=== PATIENT | male | born 1985 | race American Indian/Alaskan Native ===

== ENCOUNTER 2016-04-15 10:53 | Emergency (ER) | payer OTHER ==
[2016-04-15 11:33] VITALS: BP 116/58
--- NOTE | 2016-04-15 13:44 | XRay Report ---
LEFT HAND: The bony architecture is intact. Bony alignment is normal. No soft tissue abnormalities are seen. The joint spaces appear preserved. IMPRESSION: Normal left hand.
--- NOTE | 2016-04-15 14:42 | Emergency Department Report ---
HPI - General Chief Complaint: Extremity Injury, Upper Time Seen by Provider: 04/15/16 14:38 - HPI HPI: Patient is a 30-year-old male who presents with left index finger pain 4 days. Patient states he was playing basketball 4 days ago when he hurt his finger. Patient states he did not notice pain until about 3 days ago if pain is gone progressively worse. Patient describes pain as throbbing in nature. Patient has no loss of sensation patient is able to move fingers without problem. Patient denies fever/chills/nausea/vomitingchest pain/shortness of breath or any other problems. ED Past Medical Hx - Surgical History Additional Surgical History: right knee surgery - Social History Smoking Status: Never Smoker - Medications Home Medications: Home Medications Medication Instructions Recorded Confirmed Last Taken Type traMADol [Ultram] 50 mg PO Q6HR PRN #14 tablet 04/05/15 Unknown Rx Ciprofloxacin HCl [Ciprofloxacin 500 mg PO Q12H #14 tab 09/02/15 Unknown Rx TAB] ALBUTEROL Inhaler [ProAir HFA 2 puff IH QID PRN #1 inhalation 01/01/16 Unknown Rx Inhaler] Prednisone [predniSONE 10 mg 10 mg PO .TAPER #1 tab.ds.pk 01/01/16 Unknown Rx (6-Day Pack, 21 Tabs)] Ibuprofen [Motrin 600 MG tab] 600 mg PO Q8H PRN #60 tablet 04/15/16 Unknown Rx ED Review of Systems ROS: Stated complaint: PAIN/SWELLING LFT PHALANGES Other details as noted in HPI Constitutional: denies: chills, fever Eyes: denies: eye pain, eye discharge, vision change ENT: denies: ear pain, throat pain Respiratory: denies: cough, shortness of breath, wheezing Cardiovascular: denies: chest pain, palpitations Endocrine: no symptoms reported Gastrointestinal: denies: abdominal pain, nausea, diarrhea Genitourinary: denies: urgency, dysuria Musculoskeletal: arthralgia. denies: back pain, joint swelling Skin: denies: rash, lesions Neurological: denies: headache, weakness, numbness, paresthesias, confusion Psychiatric: denies: anxiety, depression Hematological/Lymphatic: denies: easy bleeding, easy bruising, swollen glands Physical Exam - Physical Exam Vital Signs: Vital Signs 04/15/16 11:27 Temperature 98.2 F Pulse Rate 60 Respiratory 18 Rate Blood Pressure 116/58 O2 Sat by Pulse 99 Oximetry General: Alert and oriented 3. Patient in no distress Physical Exam: GENERAL: Alert and oriented x3, no apparent distress, Normal Gait, atraumatic. HEAD: Head is normocephalic and a-traumatic. EYES: Extra ocular muscles are intact. Pupils are equal, round, and reactive to light and accommodation. EARS: symetrical, atraumatic, non tender, ear canal clear and moderate cerumen, tympanic membrance non inflamed. gross auditory nml bilaterally. NOSE: Nose symetrical, Nontender,Nares appeared normal. MOUTH:Mouth is well hydrated and without lesions. Tonsils nonerythematous or swollen, Uvula midline, Tongue not elevated. Mucous membranes are moist. Posterior pharynx clear, no exudate or lesions. Patent airways. NECK: Supple. Non edematous, No carotid bruits. No lymphadenopathy or thyromegaly. LUNGS: Symetrical with respiration, No wheezing, no rales or crackles, CTAB. HEART: S1, S2 present, regular rate and rhythm without murmur, no rubs, no gallops. UROGENITAL: No scrotal mass, Scrotum non tender to palpation bilaterally, no hernia, no scars or penile discharge. EXTREMITIES/MUSCULOSKELETAL: No cyanosis, clubbing, rash, lesions or edema. Full ROM bilaterally. UE/LE Pulses 2+ bilaterally. LE and UE 5+ strength bilaterally, hands intact bilaterally. NEUROLOGIC: No focal Deficit, Cranial nerves II through XII are grossly intact. No loss of sensation, No facial droop, Negative rhomberg. PSYCHIATRIC: Mood is congruent with affect, denies suicidal or homicidal ideations. SKIN: Warm and dry, No lesions, No ulceration or induration present. ED Course Vital Signs 04/15/16 11:27 Temperature 98.2 F Pulse Rate 60 Respiratory 18 Rate Blood Pressure 116/58 O2 Sat by Pulse 99 Oximetry ED Medical Decision Making - Medical Decision Making 30-year-old male presents with a finger sprain. No distress. Vital signs stable. ED course: Patient received a nodular milligrams of Motrin. X-ray of hand report shows no acute fracture or dislocation or injury. Discussed results with the patient. Discussed patient to follow up with primary care physician. Discussed home medication with Motrin. Discussed rest ice elevate instructions Critical care attestation.: If time is entered above; I have spent that time in minutes in the direct care of this critically ill patient, excluding procedure time. ED Disposition Clinical Impression: Sprain of finger of left hand Disposition: DISCHARGED TO HOME OR SELFCARE Is pt being admited?: No Does the pt Need Aspirin: No Condition: Stable Instructions: Finger Sprain (ED), RICE Therapy (ED) Prescriptions: Ibuprofen [Motrin 600 MG tab] 600 mg PO Q8H PRN #60 tablet PRN Reason: Pain Referrals: PRIMARY CARE, [Primary Care Provider] - 3-5 Days [facility] [Outside] - 3-5 Days [facility] [Outside] - 3-5 Days [facility] [Outside] - 3-5 Days [facility] [Outside] - 3-5 Days Forms: Work/School Release Form(ED) Time of Disposition: 15:15
[2016-04-15] MEDS ORDERED: MOTRIN PO ONE (14:43)
== END 2016-04-15 15:45 | disposition home or self-care (01) ==
LOC: ED 10:53
DX: S63.611A Unspecified sprain of left index finger, initial encounter (principal); X58.XXXA Exposure to other specified factors, initial encounter; Y93.67 Activity, basketball; Y92.310 Basketball court as the place of occurrence of the external cause; Y99.9 Unspecified external cause status
CPT/HCPCS: 99283

== ENCOUNTER 2016-06-28 22:56 | Emergency (ER) | payer OTHER ==
[2016-06-29] MEDS ORDERED: TYLENOL ONE (03:24)
[2016-06-29] MEDS ORDERED: TYLENOL PO ONE (03:38)
[2016-06-29] MEDS ORDERED: ROBITUSSIN PO ONE (06:12)
--- NOTE | 2016-06-29 06:20 | Emergency Department Report ---
HPI - General Chief Complaint: Upper Respiratory Infection Time Seen by Provider: 06/29/16 05:49 - HPI HPI: Patient is a 30-year-old male who presents to ED complaining of generalized body aches and fever 3 days. Patient states she has been having this for the past days. Patient states he feels like he has a cough sometimes is productive sometimes it's not patient states cough is resolved as well as fever. Patient denies nausea/vomiting/abdominal pain/chest pain/shortness of breath or any other problems ED Past Medical Hx - Past Medical History Previous Medical History?: No - Surgical History Past Surgical History?: Yes Additional Surgical History: right knee surgery - Social History Smoking Status: Never Smoker - Medications Home Medications: Home Medications Medication Instructions Recorded Confirmed Last Taken Type traMADol [Ultram] 50 mg PO Q6HR PRN #14 tablet 04/05/15 Unknown Rx Ciprofloxacin HCl [Ciprofloxacin 500 mg PO Q12H #14 tab 09/02/15 Unknown Rx TAB] ALBUTEROL Inhaler [ProAir HFA 2 puff IH QID PRN #1 inhalation 01/01/16 Unknown Rx Inhaler] Prednisone [predniSONE 10 mg 10 mg PO .TAPER #1 tab.ds.pk 01/01/16 Unknown Rx (6-Day Pack, 21 Tabs)] Acetaminophen [Acetaminophen 8 650 mg PO TID #20 tablet.er 06/29/16 Unknown Rx Hour] Dextromethorphan HBr [Robitussin] 15 mg PO TID #24 capsule 06/29/16 Unknown Rx Ibuprofen [Motrin 600 MG tab] 600 mg PO Q8H PRN #60 tablet 06/29/16 Unknown Rx ED Review of Systems ROS: Stated complaint: NAUSEA/BODY PAIN Other details as noted in HPI Constitutional: fever. denies: chills Eyes: denies: eye pain, eye discharge, vision change ENT: denies: ear pain, throat pain, dental pain, hearing loss Respiratory: denies: cough, shortness of breath, wheezing Cardiovascular: denies: chest pain, palpitations Endocrine: no symptoms reported Gastrointestinal: denies: abdominal pain, nausea, vomiting, diarrhea Genitourinary: denies: urgency, dysuria, frequency, hematuria Musculoskeletal: denies: back pain, joint swelling, arthralgia Skin: denies: rash, lesions Neurological: denies: headache, weakness, paresthesias Psychiatric: denies: anxiety, depression Hematological/Lymphatic: denies: easy bleeding, easy bruising Physical Exam - Physical Exam Vital Signs: Vital Signs 06/29/16 00:43 Temperature 98.8 F Pulse Rate 93 H Blood Pressure 120/61 O2 Sat by Pulse 99 Oximetry Physical Exam: GENERAL: Alert and oriented x3, no apparent distress, Normal Gait, atraumatic. HEAD: Head is normocephalic and a-traumatic. EYES: Extra ocular muscles are intact. Pupils are equal, round, and reactive to light and accommodation. EARS: symetrical, atraumatic, non tender, ear canal clear and moderate cerumen, tympanic membrance non inflamed. gross auditory nml bilaterally. NOSE: Nose symetrical, Nontender,Nares appeared normal. MOUTH:Mouth is well hydrated and without lesions. Tonsils nonerythematous or swollen, Uvula midline, Tongue not elevated. Mucous membranes are moist. Posterior pharynx clear, no exudate or lesions. Patent airways. NECK: Supple. Non edematous, No carotid bruits. No lymphadenopathy or thyromegaly. LUNGS: Symetrical with respiration, No wheezing, no rales or crackles, CTAB. HEART: S1, S2 present, regular rate and rhythm without murmur, no rubs, no gallops. ABDOMEN: No organomegaly was noted,Positive bowel sounds, soft, and non- distended. . Nontender to palpation on all Quadrants, NEUROLOGIC: No focal Deficit, Cranial nerves II through XII are grossly intact. No loss of sensation, PSYCHIATRIC: Mood is congruent with affect, denies suicidal or homicidal ideations. SKIN: Warm and dry, No lesions, No ulceration or induration present. ED Course Vital Signs 06/29/16 00:43 Temperature 98.8 F Pulse Rate 93 H Blood Pressure 120/61 O2 Sat by Pulse 99 Oximetry ED Medical Decision Making - Medical Decision Making 30 year-old male presents with URI ED course: Patient received one dose of Tylenol and 1 dose of Robitussin. Discussed with patient symptomatic relief. Discussed [id number] medication for symptomatic relief Discussed with patient to follow up with primary care physician. Patient is in no acute illicit distress. Patient is not ill-appearing. Rapid strep test negative. Patient verbally understands that he will follow-up with his primary care. Critical care attestation.: If time is entered above; I have spent that time in minutes in the direct care of this critically ill patient, excluding procedure time. ED Disposition Clinical Impression: URI (upper respiratory infection) Qualifiers: URI type: unspecified URI Qualified Code(s): J06.9 - Acute upper respiratory infection, unspecified Disposition: DISCHARGED TO HOME OR SELFCARE Is pt being admited?: No Does the pt Need Aspirin: No Condition: Stable Instructions: Upper Respiratory Infection (ED) Prescriptions: Acetaminophen [Acetaminophen 8 Hour] 650 mg PO TID #20 tablet.er Dextromethorphan HBr [Robitussin] 15 mg PO TID #24 capsule Ibuprofen [Motrin 600 MG tab] 600 mg PO Q8H PRN #60 tablet PRN Reason: Pain Referrals: PRIMARY CAREMD [Primary Care Provider] - 3-5 Days ROB MAGANA MD [Referring] - 3-5 Days RICHARD JACOME MD [Referring] - 3-5 Days [facility] [Outside] - 3-5 Days [facility] [Outside] - 3-5 Days Forms: Work/School Release Form(ED) Time of Disposition: 06:24
[2016-06-29 06:45] VITALS: BP 120/76
== END 2016-06-29 06:44 | disposition home or self-care (01) ==
LOC: ED 22:56
DX: J06.9 Acute upper respiratory infection, unspecified (principal)
CPT/HCPCS: 87400; 99282

== ENCOUNTER 2016-08-20 20:37 | Emergency (ER) | payer OTHER ==
--- NOTE | 2016-08-21 03:02 | Emergency Department Report ---
HPI - General Chief Complaint: Skin/Abscess/Foreign Body Time Seen by Provider: 08/21/16 02:33 - HPI HPI: 31-year-old male presents to ED complaining of his left second toe and first toe pain 2 months. Patient states pain aggravated with walking. 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 She also states having fungus on his toe between his fourth and fifth toe of the same foot. He denies fever, chills, injury, trauma or any other problems. ED Past Medical Hx - Past Medical History Previous Medical History?: No - Surgical History Past Surgical History?: Yes Additional Surgical History: right knee surgery - Social History Smoking Status: Never Smoker Substance Use Type: None - Medications Home Medications: Home Medications Medication Instructions Recorded Confirmed Last Taken Type traMADol [Ultram] 50 mg PO Q6HR PRN #14 tablet 04/05/15 Unknown Rx Ciprofloxacin HCl [Ciprofloxacin 500 mg PO Q12H #14 tab 09/02/15 Unknown Rx TAB] ALBUTEROL Inhaler [ProAir HFA 2 puff IH QID PRN #1 inhalation 01/01/16 Unknown Rx Inhaler] Prednisone [predniSONE 10 mg 10 mg PO .TAPER #1 tab.ds.pk 01/01/16 Unknown Rx (6-Day Pack, 21 Tabs)] Acetaminophen [Acetaminophen 8 650 mg PO TID #20 tablet.er 06/29/16 Unknown Rx Hour] Dextromethorphan HBr [Robitussin] 15 mg PO TID #24 capsule 06/29/16 Unknown Rx Clotrimazole [Athlete's Foot] 1 applic TP TID #1 tube 08/21/16 Unknown Rx Ibuprofen [Motrin 600 MG tab] 600 mg PO Q8H PRN #30 tablet 08/21/16 Unknown Rx ED Review of Systems ROS: Stated complaint: LEFT FOOT PAIN Other details as noted in HPI Constitutional: denies: chills, fever Eyes: denies: eye pain, eye discharge, vision change ENT: denies: ear pain, throat pain Respiratory: denies: cough, shortness of breath, wheezing Cardiovascular: denies: chest pain, palpitations Endocrine: no symptoms reported Gastrointestinal: denies: abdominal pain, nausea, diarrhea Genitourinary: denies: urgency, dysuria Musculoskeletal: denies: back pain, joint swelling, arthralgia Skin: denies: rash, lesions Neurological: denies: headache, weakness, paresthesias Psychiatric: denies: anxiety, depression Hematological/Lymphatic: denies: easy bleeding, easy bruising Physical Exam - Physical Exam Vital Signs: Vital Signs 08/20/16 20:50 Temperature 98.1 F Pulse Rate 52 L Respiratory 16 Rate Blood Pressure 115/81 [Right] O2 Sat by Pulse 100 Oximetry Physical Exam: GENERAL: Alert and oriented x3, no apparent distress, Normal Gait, atraumatic. HEAD: Head is normocephalic and a-traumatic. LUNGS: Symetrical with respiration, No wheezing, no rales or crackles, CTAB. HEART: S1, S2 present, regular rate and rhythm without murmur, no rubs, no gallops. EXTREMITIES/MUSCULOSKELETAL: No cyanosis, clubbing, rash, lesions or edema. Full ROM bilaterally. UE/LE Pulses 2+ bilaterally. LE and UE 5+ strength bilaterally, no loss of sensation in toes. Left: Callus noted on the toe and second toe, Fungus infection seen between fourth and fifth toe. All lower joints are intact. Nontender to palpation. No calf tenderness. SKIN: Warm and dry, No lesions, No ulceration or induration present. ED Course Vital Signs 08/20/16 20:50 Temperature 98.1 F Pulse Rate 52 L Respiratory 16 Rate Blood Pressure 115/81 [Right] O2 Sat by Pulse 100 Oximetry ED Medical Decision Making - Medical Decision Making 31-year-old presents with Elmer total pain and continue ED course: Discussed the patient is medication as prescribed. Discussed with patient to follow up with primary care physician. Discussed with patient to air leg from time to time. Vital signs are normal patient is in no acute wrist or distress. Critical care attestation.: If time is entered above; I have spent that time in minutes in the direct care of this critically ill patient, excluding procedure time. ED Disposition Clinical Impression: Foot callus, Fungal infection right foot Disposition: DISCHARGED TO HOME OR SELFCARE Is pt being admited?: No Does the pt Need Aspirin: No Condition: Stable Instructions: Antifungals (On the skin), Tinea Pedis (ED) Prescriptions: Clotrimazole [Athlete's Foot] 1 applic TP TID #1 tube Ibuprofen [Motrin 600 MG tab] 600 mg PO Q8H PRN #30 tablet PRN Reason: Pain Referrals: PRIMARY CAREMD [Primary Care Provider] - 3-5 Days WALDEMAR OBRIEN MD [Staff Physician] - 3-5 Days [facility] [Outside] - 3-5 Days Forms: Work/School Release Form(ED) Time of Disposition: 03:06
[2016-08-21 04:00] VITALS: BP 120/70
== END 2016-08-21 03:10 | disposition home or self-care (01) ==
LOC: ED 20:37
DX: B35.3 Tinea pedis (principal); L84 Corns and callosities
CPT/HCPCS: 99282

== ENCOUNTER 2017-06-14 19:48 | Emergency (ER) | payer OTHER ==
[2017-06-14 20:08] VITALS: BP 112/64
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
== END 2017-06-15 00:35 | disposition home or self-care (01) ==
LOC: ED 19:48
DX: S39.012A Strain of muscle, fascia and tendon of lower back, initial encounter (principal); V87.7XXA Person injured in collision between other specified motor vehicles (traffic), initial encounter; Y93.89 Activity, other specified; Y99.8 Other external cause status; Y92.410 Unspecified street and highway as the place of occurrence of the external cause
CPT/HCPCS: 99282

== ENCOUNTER 2017-07-31 11:43 | Emergency (ER) | payer OTHER ==
[2017-07-31 11:50] VITALS: BP 121/59
[2017-07-31] MEDS ORDERED: MOTRIN PO ONE (13:06)
[2017-07-31] MEDS ORDERED: FLAGYL PO ONE (13:06)
[2017-07-31] MEDS ORDERED: XYLOCAINE 1% MPF 5 mL INFILTRATI ONE (13:06)
[2017-07-31] MEDS ORDERED: ZITHROMAX PO ONE (13:06)
[2017-07-31] MEDS ORDERED: ROCEPHIN IM ONE (13:06)
--- NOTE | 2017-07-31 13:09 | Emergency Department Report ---
Chief Complaint: Urogenital-Male Stated Complaint: DISCOMFORT WITH URINATION Time Seen by Provider: 07/31/17 12:58 - HPI History of Present Illness: Patient is 32-year-old male presents for evaluation of penile pain. The patient reports 1 day of pain to the urethral meatus, moderate in severity, stating in quality, exacerbated with urination. He also reports associated penile drainage and discharge. Percentile induration. He admits to unprotecrted sexual intercourse recently. The patient denies fever, chills, night sweats, vomiting, diarrhea, abdominal pain, blood in the stool, dark tarry stool, hematuria, testicular pain or swelling, flank pain, inability to pass flatus. - Exam Vital Signs: Vital Signs 07/31/17 11:47 Temperature 98 F Pulse Rate 75 Respiratory 16 Rate Blood Pressure 121/59 O2 Sat by Pulse 98 Oximetry MSE screening note: Focused history and physical exam performed. Due to findings the following was ordered: ED Disposition for MSE Condition: Stable Referrals: MAC PRATER MD [Primary Care Provider] - 3-5 Days
--- NOTE | 2017-07-31 13:15 | Emergency Department Report ---
ED Male HPI - General Chief complaint: Urogenital-Male Stated complaint: DISCOMFORT WITH URINATION Time Seen by Provider: 07/31/17 12:58 Source: patient Mode of arrival: Ambulatory Limitations: No Limitations - History of Present Illness Initial comments: 32-year-old male past medical history none presents with complaint of approximately 3-5 days of increased urinary frequency and dysuria and some penile discharge. Patient is awake alert and oriented 3. Patient is concerned he may have been exposed to an STD. Denies abdominal pain fever chills nausea or vomiting. Denies testicular pain or rectal pain. MD Complaint: penile discharge, dysuria Onset/Timin -: days(s) Location: penis Quality: burning Consistency: intermittent Improves with: none Worsens with: urination discharge - Related Data Sexually active: Yes Previous Rx's Medication Instructions Recorded Last Taken Type traMADol [Ultram] 50 mg PO Q6HR PRN #14 tablet 04/05/15 Unknown Rx Ciprofloxacin HCl [Ciprofloxacin 500 mg PO Q12H #14 tab 09/02/15 Unknown Rx TAB] ALBUTEROL Inhaler [ProAir HFA 2 puff IH QID PRN #1 inhalation 01/01/16 Unknown Rx Inhaler] Prednisone [predniSONE 10 mg 10 mg PO .TAPER #1 tab.ds.pk 01/01/16 Unknown Rx (6-Day Pack, 21 Tabs)] Acetaminophen [Acetaminophen 8 650 mg PO TID #20 tablet.er 06/29/16 Unknown Rx Hour] Dextromethorphan HBr [Robitussin] 15 mg PO TID #24 capsule 06/29/16 Unknown Rx Clotrimazole [Athlete's Foot] 1 applic TP TID #1 tube 08/21/16 Unknown Rx Ibuprofen [Motrin 600 MG tab] 600 mg PO Q8H PRN #30 tablet 08/21/16 Unknown Rx Cyclobenzaprine HCl [Flexeril 5 MG 5 mg PO TID PRN #20 tab 06/15/17 Unknown Rx TAB] Ibuprofen 800 mg PO Q6H PRN #20 tablet 06/15/17 Unknown Rx Cephalexin [Keflex] 500 mg PO Q12HR #14 cap 07/31/17 Unknown Rx Allergies Allergy/AdvReac Type Severity Reaction Status Date / Time No Known Allergies Allergy Verified 06/14/17 20:07 ED Review of Systems ROS: Stated complaint: DISCOMFORT WITH URINATION Other details as noted in HPI Constitutional: denies: chills, fever Eyes: denies: eye pain, eye discharge, vision change ENT: denies: ear pain, throat pain Respiratory: denies: cough, shortness of breath, wheezing Cardiovascular: denies: chest pain, palpitations Endocrine: no symptoms reported Gastrointestinal: denies: abdominal pain, nausea, diarrhea Genitourinary: frequency, discharge. denies: urgency, dysuria Musculoskeletal: denies: back pain, joint swelling, arthralgia Skin: denies: rash, lesions Neurological: denies: headache, weakness, paresthesias Psychiatric: denies: anxiety, depression Hematological/Lymphatic: denies: easy bleeding, easy bruising ED Past Medical Hx - Past Medical History Previous Medical History?: No - Surgical History Additional Surgical History: right knee surgery - Social History Smoking Status: Current Every Day Smoker - Medications Home Medications: Home Medications Medication Instructions Recorded Confirmed Last Taken Type traMADol [Ultram] 50 mg PO Q6HR PRN #14 tablet 04/05/15 Unknown Rx Ciprofloxacin HCl [Ciprofloxacin 500 mg PO Q12H #14 tab 09/02/15 Unknown Rx TAB] ALBUTEROL Inhaler [ProAir HFA 2 puff IH QID PRN #1 inhalation 01/01/16 Unknown Rx Inhaler] Prednisone [predniSONE 10 mg 10 mg PO .TAPER #1 tab.ds.pk 01/01/16 Unknown Rx (6-Day Pack, 21 Tabs)] Acetaminophen [Acetaminophen 8 650 mg PO TID #20 tablet.er 06/29/16 Unknown Rx Hour] Dextromethorphan HBr [Robitussin] 15 mg PO TID #24 capsule 06/29/16 Unknown Rx Clotrimazole [Athlete's Foot] 1 applic TP TID #1 tube 08/21/16 Unknown Rx Ibuprofen [Motrin 600 MG tab] 600 mg PO Q8H PRN #30 tablet 08/21/16 Unknown Rx Cyclobenzaprine HCl [Flexeril 5 MG 5 mg PO TID PRN #20 tab 06/15/17 Unknown Rx TAB] Ibuprofen 800 mg PO Q6H PRN #20 tablet 06/15/17 Unknown Rx Cephalexin [Keflex] 500 mg PO Q12HR #14 cap 07/31/17 Unknown Rx ED Physical Exam - General Limitations: No Limitations General appearance: alert, in no apparent distress - Head Head exam: Present: atraumatic, normocephalic - Eye Eye exam: Present: normal appearance, PERRL, EOMI - ENT ENT exam: Present: mucous membranes moist - Neck Neck exam: Present: normal inspection - Respiratory Respiratory exam: Present: normal lung sounds bilaterally. Absent: respiratory distress - Cardiovascular Cardiovascular Exam: Present: regular rate, normal rhythm. Absent: systolic murmur, diastolic murmur, rubs, gallop - GI/Abdominal GI/Abdominal exam: Present: soft, normal bowel sounds - Rectal Rectal exam: Present: deferred - exam: Present: normal inspection, urethral discharge - Extremities Exam Extremities exam: Present: normal inspection - Back Exam Back exam: Present: normal inspection - Neurological Exam Neurological exam: Present: alert, oriented X3 - Psychiatric Psychiatric exam: Present: normal affect, normal mood - Skin Skin exam: Present: warm, dry, intact, normal color. Absent: rash ED Course Vital Signs 07/31/17 11:47 Temperature 98 F Pulse Rate 75 Respiratory 16 Rate Blood Pressure 121/59 O2 Sat by Pulse 98 Oximetry ED Medical Decision Making - Medical Decision Making A/P: Urethritis, possible UTI 1- patient empirically treated with azithromycin and ceftriaxone and metronidazole. Patient can use [id number] Tylenol or Motrin 2- will treat patient empirically with Keflex for UTI as per my discussion with Dr. Okeefe 3- urine culture, GC culture Critical care attestation.: If time is entered above; I have spent that time in minutes in the direct care of this critically ill patient, excluding procedure time. ED Disposition Clinical Impression: Urethritis, Dysuria Disposition: TO HOME OR SELFCARE Is pt being admited?: No Does the pt Need Aspirin: No Condition: Stable Instructions: Nonspecific Urethritis in Men (ED), Urinary Tract Infection in Men (ED) Prescriptions: Cephalexin [Keflex] 500 mg PO Q12HR #14 cap Referrals: MAC PRATER MD [Primary Care Provider] - 3-5 Days [facility] [Provider Group] - 3-5 Days Forms: STI Treatment and Prevention Time of Disposition: 13:58
[2017-07-31 13:39] LABS: Amorphous Crystals,Urine 1+; Bacteria,Urine 1+ /HPF (Negative); Bilirubin,Urine NEG (Negative); Blood,Urine SM (Negative); Color,Urine Yellow (Yellow); Urobilinogen,Urine < 2.0 mg/dL (<2.0)
== END 2017-07-31 14:13 | disposition home or self-care (01) ==
LOC: ED 11:43
DX: N34.2 Other urethritis (principal); F17.200 Nicotine dependence, unspecified, uncomplicated
CPT/HCPCS: 81001; 87086; 96372; 99283; J0696